=== PATIENT | male | born 1975 | race American Indian/Alaskan Native ===

== ENCOUNTER 2020-12-28 23:48 | Emergency (ER) | payer BC, OTHER ==
--- NOTE | 2020-12-29 05:10 | XRay Report ---
CHEST 1 VIEW INDICATION / CLINICAL INFORMATION: palpitations. COMPARISON: None available. FINDINGS: SUPPORT DEVICES: None. HEART / MEDIASTINUM: No significant abnormality. LUNGS / PLEURA: No significant pulmonary or pleural abnormality. No pneumothorax. ADDITIONAL FINDINGS: No significant additional findings. IMPRESSION: 1. No acute findings. Signer Name: Carmenza Yanes MD Signed: 12/29/2020 5:06 AM Workstation Name: [id number]
[2020-12-29 05:17] LABS: Basophils % (Auto) 0.4 % (0.0-1.8); Eosinophils % (Auto) 0.1 % (0.0-4.3); Hematocrit 44.4 % (35.5-45.6); Hemoglobin 15.2 gm/dl (11.8-15.2); Lymphocytes # (Auto) 0.9 K/mm3 (1.2-5.4); Lymphocytes % (Auto) 16.7 % (13.4-35.0); Mean Corpuscular HGB Conc 34 % (32-34); Mean Corpuscular Volume 83 fl (84-94); Monocytes # (Auto) 0.8 K/mm3 (0.0-0.8); Monocytes % (Auto) 13.6 % (0.0-7.3); Platelet Count 110 K/mm3 (140-440); Red Blood Count 5.35 M/mm3 (3.65-5.03); Red Cell Distribution Width 13.1 % (13.2-15.2)
[2020-12-29 05:27] LABS: Alanine Aminotransferase 28 units/L (7-56); Albumin 4.6 g/dL (3.9-5); Blood Urea Nitrogen 9 mg/dL (9-20); Calcium 8.9 mg/dL (8.4-10.2); Hemolysis Index 2
[2020-12-29 05:30] LABS: BUN/Creatinine Ratio 13
--- NOTE | 2020-12-29 06:22 | Emergency Department Report ---
ED Palpitations HPI - General Chief Complaint: Chest Pain Stated Complaint: CHEST PAIN/LEFT SIDE NUMBNESS Time Seen by Provider: 12/29/20 06:10 Source: patient Mode of arrival: Ambulatory Limitations: No Limitations - History of Present Illness Initial Comments: CC: heart racing HPI: This is a 45 yo male with hx of marijuana use who presents with heart racing this evening. While sitting at rest, heart started racing. He noticed that heart rate was elevated on his Apple Watch. He denies chest pain or dyspnea. He denies stress, depression, anxiety. He did smoke marijuana this evening. Symptoms have resolved. He informed triage nurse that he had chest pain which he denies. No known cardiac history in the family. MD Complaint: "heart racing", palpitations -: Sudden, This evening Context: occured during rest Associated Symptoms: denies other symptoms ED Review of Systems ROS: Stated complaint: CHEST PAIN/LEFT SIDE NUMBNESS Other details as noted in HPI Comment: All other systems reviewed and negative Constitutional: denies: fever, malaise Respiratory: denies: cough, shortness of breath Cardiovascular: palpitations. denies: chest pain Gastrointestinal: denies: abdominal pain, nausea, vomiting ED Past Medical Hx - Past Medical History Previous Medical History?: No - Surgical History Past Surgical History?: No - Family History Family history: no significant - Social History Smoking Status: Never Smoker Substance Use Type: Marijuana ED Physical Exam - General Limitations: No Limitations General appearance: alert, in no apparent distress - Head Head exam: Present: atraumatic, normocephalic - Eye Eye exam: Present: normal appearance - ENT ENT exam: Present: mucous membranes moist - Neck Neck exam: Present: normal inspection, full ROM - Respiratory Respiratory exam: Present: normal lung sounds bilaterally. Absent: respiratory distress, wheezes, rales, rhonchi - Cardiovascular Cardiovascular Exam: Present: regular rate, normal rhythm, normal heart sounds. Absent: systolic murmur, diastolic murmur, rubs, gallop - GI/Abdominal GI/Abdominal exam: Present: soft, normal bowel sounds. Absent: distended, tenderness, guarding, rebound - Rectal Rectal exam: Present: deferred - Extremities Exam Extremities exam: Present: normal inspection - Neurological Exam Neurological exam: Present: alert, oriented X3 - Psychiatric Psychiatric exam: Present: normal affect, normal mood - Skin Skin exam: Present: warm, dry, intact, normal color. Absent: rash ED Course Vital Signs 12/29/20 12/29/20 12/29/20 01:26 04:26 04:30 Temperature 98.3 F Pulse Rate 139 H 125 H 129 H Respiratory 18 13 18 Rate Blood Pressure 180/120 178/111 O2 Sat by Pulse 99 99 Oximetry 12/29/20 12/29/20 12/29/20 04:45 05:00 05:16 Temperature Pulse Rate 104 H 105 H 100 H Respiratory 29 H 25 H 19 Rate Blood Pressure 178/103 145/102 178/103 O2 Sat by Pulse 98 98 98 Oximetry 12/29/20 12/29/20 12/29/20 05:30 05:46 06:00 Temperature Pulse Rate 112 H 90 89 Respiratory 19 15 17 Rate Blood Pressure 130/96 130/96 139/87 O2 Sat by Pulse 98 97 99 Oximetry 12/29/20 12/29/20 12/29/20 06:16 06:30 06:46 Temperature Pulse Rate 117 H 108 H 95 H Respiratory 13 13 18 Rate Blood Pressure 139/87 128/89 128/89 O2 Sat by Pulse 100 100 99 Oximetry ED Medical Decision Making - Lab Data Result diagrams: 12/29/20 04:46 12/29/20 04:46 Laboratory Results - last 24 hr 12/29/20 12/29/20 04:46 04:46 WBC 5.5 RBC 5.35 H Hgb 15.2 Hct 44.4 MCV 83 L MCH 28 MCHC 34 RDW 13.1 L Plt Count 110 L Lymph % (Auto) 16.7 [place] % (Auto) 13.6 H Eos % (Auto) 0.1 Baso % (Auto) 0.4 Lymph # (Auto) 0.9 L [place] # (Auto) 0.8 Eos # (Auto) 0.0 Baso # (Auto) 0.0 Seg Neutrophils % 69.2 Seg Neutrophils # 3.8 Sodium 137 Potassium 3.4 L Chloride 97.8 L Carbon Dioxide 26 Anion Gap 17 BUN 9 Creatinine 0.7 L Estimated GFR > 60 BUN/Creatinine Ratio 13 Glucose 123 H Calcium 8.9 Total Bilirubin 0.40 AST 40 ALT 28 Alkaline Phosphatase 66 Troponin T < 0.010 Total Protein 7.2 Albumin 4.6 Albumin/Globulin Ratio 1.8 - EKG Data -: EKG Interpreted by Pa EKG shows normal: sinus rhythm, axis, intervals, QRS complexes, ST-T waves Rate: tachycardia - EKG Data 12/29/20 06:20 EKG@[id number] EKG interpreted by me Sinus tachycardia rate 125 bpm left axis deviation normal intervals no ST elevation nonischemic T wave pattern - Radiology Data Radiology results: report reviewed Chest 1 view: No acute findings [id number] radiology report - Medical Decision Making Chest pain low risk for ACS, considering significant tachycardia further studies obtained including D-dimer to rule out PE, TSH to rule out hyperthyroidism. I suspect tachycardia is related to marijuana use.. He understands and agrees to cease from using marijuana for significant amount of time. I have referred Mr. Quiroz to both chief unit forester and outpatient medicine physician. I have faxed cardiology outpatient referral request to [facility]. serial troponin values negative Critical care attestation.: If time is entered above; I have spent that time in minutes in the direct care of this critically ill patient, excluding procedure time. ED Disposition Clinical Impression: Tachycardia, Marijuana use Disposition: DC-01 TO HOME OR SELFCARE Is pt being admited?: No Does the pt Need Aspirin: No Condition: Stable Instructions: Cannabis Use Disorder, Sinus Tachycardia Referrals: RANDALL COLON MD [Staff Physician] - 3-5 Days MORGAN MCKENZIE MD [Staff Physician] - 3-5 Days HEART Score - HEART Score History: Slightly suspicious EKG: Normal Age: 45-65 Risk factors: No known risk factors Troponin: Troponin T < 0.010 ng/mL (0.00-0.029) 12/29/20 06:49 Troponin: < normal limit HEART Score: 1
[2020-12-29 06:48] VITALS: BP 128/89
--- NOTE | 2020-12-29 18:45 | Electrocardiograph Report ---
[facility] Test Date: 2020-12-29 Test Time: 01:37:22 Pat Name: АЛЕКСАНДР NGUYEN Department: Room: Gender: M [employer] Laboratory Assistant: DEVANG : 1975 Requested By: ARISTIDES BUSH Order Number: [id number] Reading MD: Matty Ruvalcaba Measurements Intervals [place] Rate: 126 P: 69 PA: 154 QRS: -44 QRSD: 76 T: 73 QT: 307 QTc: 445 Interpretive Statements Sinus tachycardia Left axis deviation No previous ECG available for comparison Electronically Signed On 12-29-2020 18:45:01 EDT by Matty Ruvalcaba
== END 2020-12-29 08:30 | disposition home or self-care (01) ==
LOC: ED 23:48
DX: R00.0 Tachycardia, unspecified (principal); F12.10 Cannabis abuse, uncomplicated
CPT/HCPCS: 36415; 71045; 80053; 84443; 84484; 85025; 85379; 93005